=== PATIENT | female | born 1975 | race Caucasian/White ===

== ENCOUNTER 2019-11-22 18:16 | Emergency (ER) | payer MEDICAID, SELFPAY ==
[2019-11-22 18:16] VITALS: BP 160/106; PULSE 98; RESP 16; TEMP 37.2; O2SAT 96; BMI 40.6
--- NOTE | 2019-11-22 18:20 | ED_ITS ---
Entered by Janay Hyman, acting as scribe for Yadira Gilmore HPI - Seizure General: Chief Complaint: Seizure Stated Complaint: seizure Source: patient Mode of arrival: EMS Limitations: no limitations History of Present Illness: HPI Narrative: 44 yo Female presents to ED with complaint of seizures. Pt states that she has been out of her Keppra for 2 days. Pt states that she has had 5 seizures today. Pt states that her head hurts but doesn't know if she hit her head during her seizures today or not. The has arrived and states that she did not hit her head and he observed all seizures. MD complaint: seizure Onset (ago): day(s) (today) Description of Episode: loss of consciousness, tonic-clonic movement and post- event confusion Witnessed: Yes - by Bystander Trauma: No Seizure History: Yes Place: Home Possible Precipitating Event: medication (out of Keppra X 2 days) Associated symptoms: Reports no associated symptoms; Deny chest pain, chills, confusion, diaphoresis, fever(s), malaise or syncope Review of Systems General: Reports: other (negative unless marked) Const: Denies: fever, chills, body aches, fatigue, malaise or diaphoresis Eyes: Denies: change in vision or blurry vision ENMT: Denies: throat pain, painful swallowing, hoarseness, ear pain, ear discharge, Change in hearing or nasal discharge Card: Denies: chest pain, palpitations, irregular heart rhythm, syncope, pre- syncope, shortness of breath on exertion or shortness of breath when lying down Resp: Denies: shortness of breath, productive cough, non-productive cough, wheezing, coughing up blood or chest congestion GI: Denies: abdominal pain, nausea, vomiting, vomiting blood, coffee grounds in vomit, diarrhea, constipation, cramping, blood in stool or black tarry stool : Denies: flank pain, painful urination, urinary frequency, urinary urgency, decreased urine ouput, urinary incontinence or blood in urine Musc: Denies: neck pain, back pain, extremity pain, extremity swelling, joint pain, joint swelling, joint warmth or joint stiffness Skin/Breast: Denies: rash, skin tenderness or yellow skin Neuro: Reports: headache and seizure-like activity; Denies: numbness in extremities, weakness in extremities, changes in sensation, lack of coordination, difficulty walking, dizziness, vertigo or confusion Endo: Denies: excessive thirst, tired all the time, cold intolerance, excessive sweating, flushing or hot flashes Dat/Lymph: Denies: easy bruising, easy bleeding, petechiae or enlarged lymph nodes All/Imm: Denies: hives, throat swelling, tongue swelling, facial swelling or acute wheezing PFSH ED PFSH: Statuses (acute, chronic, etc) shown below reflect problem list status as previously entered and may not be historically accurate Medical History Seizure (Acute) Social History Smoking and tobacco status: never smoked Physical Exam Const: COMMON NORMALS: no apparent distress, oriented x3, no limitations, healthy appearing and well nourished EXAM LIMITATIONS: no altered mental status GENERAL APPEARANCE: cooperative, well kempt and well developed ORIENTATION/CONSCIOUSNESS: Yes awake HENMT: COMMON NORMALS: normocephalic, head/scalp atraumatic, hearing grossly normal bilaterally, external ears normal, EAC's normal, external nose normal and moist oral mucous membranes HEAD & SCALP: normal to inspection, normocephalic and atraumatic FACE & SINUS: normal facial exam and face symmetric NOSE: external nose normal and nares normal EXTERNAL EAR: Yes external ears normal EXTERNAL AUDITORY CANAL: EAC's normal MOUTH: oral and palatal mucosa normal and tongue normal Eye: COMMON NORMALS: PERRL, EOMs intact bilaterally, conjunctivae normal and no scleral icterus GENERAL EYE: normal appearance of both eyes and normal light reflex CONJUNCTIVA: Yes conjunctivae normal SCLERA: sclerae normal CORNEA: Yes corneas normal PUPIL: Yes PERRL DIRECT OPHTHALMOSCOPY: Yes normal light reflex Neck/C-Spine: COMMON NORMALS: full ROM, no lymphadenopathy, supple, no meningeal signs and no JVD GENERAL: Yes normal visual inspection and Yes trachea midline CERVICAL SPINE: Yes cervical ROM normal Chest: COMMONS NORMALS: inspection of chest normal and palpation of chest normal Resp: COMMON NORMALS: normal respiratory effort, no retractions, no use of accessory muscles and clear to auscultation bilaterally EFFORT & INSPECTION: Yes able to speak in complete sentences AUSCULTATION: clear to auscultation bilaterally Cardio: COMMON NORMALS: no JVD, regular rate, regular rhythm, S1 normal heart sound, S2 normal heart sound, no gallops, no clicks, no murmurs and no rub JUGULAR VENOUS DISTENTION: no JVD RATE: regular rate RHYTHM: regular rhythm HEART SOUNDS: S1 normal and S2 normal GI: COMMON NORMALS: soft to palpation, non-tender, no hepatosplenomegaly and no masses INSPECTION: Yes normal to inspection PALPATION: Yes soft and Yes no hepatosplenomegaly : COMMON NORMALS: Yes no CVA tenderness BLADDER/KIDNEY EXAM: Yes no CVA tenderness Back/Pelvis: COMMON NORMALS: no CVA tenderness, thoracic and lumbar spine normal to inspection, no thoracic nor lumbar tenderness and thoraco-lumbar ROM normal Extremity: COMMON NORMALS: normal to inspection, full ROM, normal capillary refill, no joint enlargement, no clubbing, cyanosis or edema and no calf tenderness Neuro: COMMON NORMALS: oriented x3, CN's II-XII intact bilaterally, moves all extremities, no focal motor deficits and no sensory deficits noted MENINGEAL SIGNS: Yes no meningeal signs Psych: COMMON NORMALS: mental status grossly normal, thought process normal, cooperative, affect normal, speech normal and activity/motor behavior normal APPEARANCE: Yes well kempt SPEECH: Yes normal speech THOUGHT PROCESS: normal thought process Skin: COMMON NORMALS: no rashes or lesions noted, skin turgor normal, no jaundice, no petechiae and no mottling GENERAL SKIN EXAM: no rashes or les ions noted and turgor normal Course Vital Signs: Vital signs: Vital Signs Temperature 99 F 11/22/19 18:16 Pulse Rate 98 11/22/19 18:16 Respiratory Rate 16 11/22/19 18:16 Blood Pressure 160/106 11/22/19 18:16 Pulse Oximetry 96 11/22/19 18:16 MDM - Seizure MDM Narrative: Medical decision making narrative: The patient is refusing all work-up. She wants to go home. I will give her an IV load of Keppra and she will resume her Keppra at home. She has no other complaints or concerns. Discharge Plan Discharge Patient Disposition: Home, Self-Care Clinical Impression: Generalized seizure Condition: Stable Prescriptions: New lisinopril 10 mg tablet 10 mg PO DAILY Qty: 30 RF: 0 Keppra 750 mg tablet 750 mg PO BID 14 Days Qty: 28 RF: 0 Discharge Orders: Discharge Order (Routine); Ordered 11/22/19 Ordered By: Yadira Gilmore Referrals: Sara Barrett MD [Physician] - 4-7 days Discharge Diet: Advance as tolerated Discharge Activity: Increase activity as tolerated Patient Instructions: Epilepsy (ED), Recurrent Seizures Adult (ED), Seizures Activity Restrictions/Additional Instructions: No driving, no working at heights, no tub baths, no swimming alone or anything else that would put you at risk should you have another seizure. Please return to the ER immediately for any of the signs or symptoms listed on your discharge instruction sheets, worsening/changing of your symptoms, you are not getting better as quickly as expected, or for ANY other cause or concerns. Coding Level of Care Code ED Grades 1 Thru 6 Home Teacher for Susang Fwkal The documentation recorded by the Yenni vera Carmen, accurately reflects the service I personally performed and the decisions made by , Yadira Gilmore
[2019-11-22] MEDS: LORazepam 2 mg/mL INJ 1 mL 1 MG IVP (18:55)
[2019-11-22 19:43] VITALS: BP 146/95; PULSE 97; RESP 27; O2SAT 96
== END 2019-11-22 19:43 | disposition home or self-care (01) ==
LOC: ER 12-21 06:53
PROVIDERS: Emergency Provider Emergency Medicine; Family Provider Family Medicine; PCP Family Medicine
DX: G40.89 Other seizures (principal)
CPT/HCPCS: 96365; 96374; 99282; J1953; J2060

== ENCOUNTER 2020-01-13 16:55 | Emergency (ER) | payer MEDICAID, SELFPAY ==
[2020-01-13 16:57] VITALS: BP 165/105; PULSE 83; RESP 18; TEMP 37; O2SAT 99; BMI 40.6
--- NOTE | 2020-01-13 17:10 | ED_ITS ---
HPI - Eye Problem General: Chief complaint: Eye Problems Stated complaint: LEFT EYE PAIN Time Seen by Provider: 01/13/20 17:06 History of Present Illness: HPI Narrative: Patient is a 44-year-old female who comes to the ED with a left eye complaint. Patient has redness itching and irritated left eye that started 2 days ago. Her lower eyelid in the left eye is swollen. Yesterday patient said that it looked like she had a pimple on her left lower eyelid and she popped it and white stuff came out. After popping it she said it seemed a little more red and irritated. Associated symptoms: Reports fever(s); Denies headache(s), nausea, neck pain or vomiting Review of Systems Const: Reports: fever; Denies: chills or fatigue Eyes: Reports: blurry vision (left eye-due to lower eye lid swelling and increased watery eye) and eye discomfort (left eye due to lower lid swelling); Denies: change in vision, eye discharge or eye redness ENMT: Denies: throat pain, painful swallowing, nasal discharge or nasal congestion Card: Denies: chest pain, palpitations, edema, swelling of feet/ankles, shortness of breath on exertion or shortness of breath when lying down Resp: Denies: shortness of breath, productive cough or non-productive cough GI: Denies: abdominal pain, nausea, vomiting, diarrhea, constipation or blood in stool : Denies: flank pain, painful urination or blood in urine Musc: Denies: neck pain, back pain or extremity swelling Skin/Breast: Reports: redness (left lower eyelid), skin tenderness (left lower eye lid) and skin swelling (left lower eye lid); Denies: rash or new lesion Neuro: Denies: headache, numbness in extremities or weakness in extremities PFS ED PFSH: Medical History Seizure Family History Mother Hypertension Father Hypertension Diabetes Stroke Cancer Colon Daughter Diabetes Grandmother Cancer Thyroid Cancer Social History Smoking and tobacco status: former smoker Female Reproductive History: Date of last menstrual period: 11/18/19 Physical Exam Narrative: EXAM NARRATIVE: Patient is a 44-year-old female sitting on the exam chair when I entered the room. She had rag compress to her left eye. Patient had left lower eyelid swelling, erythema and warmth. It was localized to the left lower eyelid and had not spread anywhere else. Const: COMMON NORMALS: oriented x3 HENMT: COMMON NORMALS: normocephalic HEAD & SCALP: normocephalic MOUTH: oral and palatal mucosa normal THROAT: posterior oropharynx normal and uvula midline Eye: COMMON NORMALS: PERRL, EOMs intact bilaterally and conjunctivae normal EYELID: eyelid abnormal left lower eyelid erythema, swelling and tenderness CONJUNCTIVA: Yes conjunctivae normal PUPIL: Yes PERRL Neck/C-Spine: COMMON NORMALS: supple GENERAL: Yes normal visual inspection Resp: COMMON NORMALS: normal respiratory effort, no retractions, no use of accessory muscles and clear to auscultation bilaterally AUSCULTATION: clear to auscultation bilaterally Cardio: COMMON NORMALS: regular rate, regular rhythm, S1 normal heart sound, S2 normal heart sound, no gallops, no clicks, no murmurs and peripheral pulses 2+ throughout RATE: regular rate RHYTHM: regular rhythm HEART SOUNDS: S1 normal and S2 normal PERIPHERAL PULSES: pulses 2+ throughout GI: COMMON NORMALS: normal to inspection, nondistended, normoactive bowel sounds, soft to palpation, non-tender and no masses PALPATION: Yes soft : COMMON NORMALS: Yes no CVA tenderness BLADDER/KIDNEY EXAM: Yes no CVA tenderness Back/Pelvis: COMMON NORMALS: no CVA tenderness Extremity: COMMON NORMALS: normal to inspection Neuro: COMMON NORMALS: oriented x3 and moves all extremities Skin: GENERAL SKIN EXAM: dry skin Course Vital Signs: Vital signs: Vital Signs Temperature 98.0 F 01/13/20 18:08 Pulse Rate 72 01/13/20 18:08 Respiratory Rate 16 01/13/20 18:08 Blood Pressure 139/94 01/13/20 18:08 Pulse Oximetry 97 01/13/20 18:08 Discharge Plan Discharge Patient Disposition: Home, Self-Care Clinical Impression: Sty, external Qualifiers: Laterality: left Eyelid: lower Qualified Code(s): H00.015 - Hordeolum externum left lower eyelid Condition: Stable Prescriptions: New erythromycin 5 mg/gram (0.5 %) ointment 1 applic ophthalmic (eye) QID Qty: 3.5 RF: 0 Bactrim DS 800-160 mg tablet 1 tab PO BID 5 Days Qty: 10 RF: 0 No Action levetiracetam [Keppra XR] 750 mg tablet extended release 24 hr 1,500 mg PO QDAY Qty: 60 RF: 1 lisinopril 10 mg tablet 10 mg PO DAILY Qty: 30 RF: 0 Discharge Orders: Discharge Order (Routine); Ordered 01/13/20 Ordered By: Alexandre Plunkett Referrals: Fiona Thomas DO [Primary Care Provider] - Discharge Diet: Regular Discharge Activity: Resume usual activity Patient Instructions: Barrie (ED) Activity Restrictions/Additional Instructions: Follow-up with ear PCP in 5 to 7 days for reevaluation. Take full course of antibiotics as prescribed. Apply the antibiotic ointment 4-6 times a day. Clean left eye with a warm soapy water and rag. Use warm compresses on the left eye. If symptoms worsen after 3 days of treatment with antibiotics return to the ED or go see an eye doctor immediately. Discharge Date/Time: 01/13/20 18:10 Coding Level of Care Code ED Protective Signal Repairer Helper for Terry Fwd Exam Comprehensive
[2020-01-13 18:08] VITALS: BP 139/94; PULSE 72; RESP 16; TEMP 36.7; O2SAT 97
== END 2020-01-13 18:10 | disposition home or self-care (01) ==
PROVIDERS: Emergency Provider Physician Assistant; Family Provider Family Medicine; PCP Family Medicine
DX: H00.015 Hordeolum externum left lower eyelid (principal); Z87.891 Personal history of nicotine dependence
CPT/HCPCS: 12345; 99281

== ENCOUNTER 2020-03-26 21:05 | Emergency (ER) | payer MEDICAID, SELFPAY ==
--- NOTE | 2020-03-26 21:09 | ED_ITS ---
HPI - General Adult General: Chief complaint: Allergic Reaction Stated complaint: poss allergic reaction Time Seen by Provider: 03/26/20 21:09 Source: patient Mode of arrival: ambulatory Limitations: no limitations History of Present Illness: HPI narrative: Patient comes in today for complaints of swelling of her tongue. Patient states that she had just finished the [place] salad with ranch dressing and started feeling her tongue swell. 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 Patient appears well, patient appears in no pain. Respirations are even. And patient appears in no acute distress. Review of Systems General: Reports: 10 or more systems reviewed and unremarkable except in HPI and below ENMT: Reports: other (Tongue swelling) [facility] ED PFSH: Medical History (Updated 03/26/20 @ 21:15 by YO Patel) Anxiety Carpal tunnel syndrome delivery delivered Epilepsy Essential hypertension Restless legs syndrome Seizure Surgical History H/O tubal ligation History of shoulder surgery Family History Mother Hypertension Father Hypertension Diabetes Stroke Cancer Colon Daughter Diabetes Grandmother Cancer Thyroid Cancer Social History Smoking and tobacco status: former smoker Alcohol intake: never Female Reproductive History: Date of last menstrual period: 11/18/19 Physical Exam Const: COMMON NORMALS: no acute distress and patient oriented x3 GENERAL APPEARANCE: cooperative HENMT: COMMON NORMALS: normocephalic, TM's normal bilaterally and Normal external nose present HEAD & SCALP: normal to inspection and normocephalic NOSE: Normal external nose present TYMPANIC MEMBRANE: TM's normal bilaterally MOUTH: Normal oral and palatal mucosa present, lip normal and tongue abnormal (Possible mild anterior swelling.) THROAT: posterior oropharynx normal Eye: GENERAL EYE: appearance normal, both eyes and all related structures Neck/C-Spine: COMMON NORMALS: full ROM Lymph: LYMPHATIC: no lymphadenopathy noted Chest: COMMONS NORMALS: normal inspection of the chest Resp: COMMON NORMALS: normal respiratory effort EFFORT & INSPECTION: Yes able to speak in complete sentences Cardio: COMMON NORMALS: regular rate and regular rhythm RATE: regular rate RHYTHM: regular rhythm GI: COMMON NORMALS: non-tender : COMMON NORMALS: Yes no CVA tenderness BLADDER/KIDNEY EXAM: Yes no CVA tenderness Back/Pelvis: COMMON NORMALS: no CVA tenderness and thoracic and lumbar spine normal to inspection Extremity: COMMON NORMALS: normal to inspection Neuro: COMMON NORMALS: patient oriented x3 and moves all extremities Psych: COMMON NORMALS: mental status grossly normal and cooperative Skin: COMMON NORMALS: no rashes or lesions noted GENERAL SKIN EXAM: no rashes or lesions noted Course ED course: 2204, patient resting well, reports that tongue swelling is better, will monitor for next hour to ensure no recurrence. wjw Vital Signs: Vital signs: Vital Signs Temperature 96.6 F L 03/26/20 21:11 Pulse Rate 96 03/26/20 22:30 Respiratory Rate 16 03/26/20 22:30 Blood Pressure 133/77 03/26/20 22:30 Pulse Oximetry 97 03/26/20 22:30 MDM - General Adult MDM Narrative: Medical decision making narrative: Patient comes in today for complaints of swelling of the tongue. Patient reports that she noticed it after ingesting lena lettuce. Patient feels that the lena lettuce is what caused the incident as it was similar to her coconut allergy response. Exam notes no significant swelling of the tongue. Respirations were even lungs were clear to auscultation. Skin was warm and dry color was pink. Differential diagnosis includes allergic reaction to food, anaphylaxis, angioedema. Patient was given epinephrine 0.3 mg with good results. Patient was then given Solu- Medrol and famotidine and cetirizine for further treatment of the reaction. Patient will be continued on routine medications. Patient should follow-up with primary care. Patient was given a refill of her lisinopril which she routinely takes. Another thought may be angioedema secondary to the use of lisinopril although patient was very adamant that it was similar to her coconut allergy and feels it was lena lettuce. Discharge Plan Discharge Patient Disposition: Home, Self-Care Clinical Impression: Allergic reaction Qualifiers: Encounter type: initial encounter Qualified Code(s): T78.40XA - Allergy, unspecified, initial encounter Condition: Stable Prescriptions: New cetirizine 10 mg tablet 10 mg PO DAILY 10 Days Qty: 10 RF: 0 famotidine 20 mg tablet 20 mg PO BID 10 Days Qty: 20 RF: 0 prednisone 20 mg tablet 20 mg PO DAILY 5 Days Qty: 5 RF: 0 lisinopril 10 mg tablet 10 mg PO DAILY Qty: 30 RF: 1 No Action lisinopril 10 mg tablet 10 mg PO DAILY Qty: 30 RF: 0 levetiracetam [Keppra XR] 750 mg tablet extended release 24 hr 1,500 mg PO QDAY Qty: 60 RF: 2 Referrals: Fiona Thomas DO [Primary Care Provider] - Discharge Diet: Usual diet Discharge Activity: Increase activity as tolerated Patient Instructions: Food Allergy (ED) Activity Restrictions/Additional Instructions: Avoids exposure to lena lettuce and ranch dressing. It is sometimes hard to discover the allergen that causes the reaction. Drink plenty of water and take medications as directed. Follow-up with primary care for further evaluation and treatment. Return to the ER for worsening symptoms or new concerns. Coding Level of Care Code ED Manager Supply Chain Planning for Terry Fwd Exam Comprehensive
[2020-03-26 21:11] VITALS: BP 173/105; PULSE 96; RESP 20; TEMP 35.9; O2SAT 98; BMI 40.6
[2020-03-26] MEDS: cetirizine 10 mg Tablet PO (21:40)
[2020-03-26] MEDS: famotidine 20 mg Tablet 40 MG PO (21:40)
[2020-03-26] MEDS: EPINEPHrine 1 mg/mL INJ 0.3 MG IM (21:41)
[2020-03-26 21:47] VITALS: BP 169/86; PULSE 99; RESP 18; O2SAT 97
[2020-03-26 22:05] VITALS: BP 140/80; PULSE 85; RESP 19; O2SAT 97
[2020-03-26 22:30] VITALS: BP 133/77; PULSE 96; RESP 16; O2SAT 97
--- NOTE | 2020-03-26 22:56 | PC.NURSE ---
care and report given to Eloy bartlett RN
[2020-03-26 23:22] VITALS: BP 132/65; PULSE 81; RESP 23; O2SAT 98
[2020-03-26 23:35] VITALS: BP 154/87; PULSE 79; RESP 20; O2SAT 99
== END 2020-03-26 23:36 | disposition home or self-care (01) ==
PROVIDERS: Emergency Provider Nurse Practitioner Family; PCP Family Medicine
DX: T78.40XA Allergy, unspecified, initial encounter (principal); I10 Essential (primary) hypertension; Z87.891 Personal history of nicotine dependence
CPT/HCPCS: 12345; 96372; 99282; 99284; J0171; J2930

== ENCOUNTER → 2020-03-28 08:47 | Outpatient (BNVA) | payer MEDICAID, SELFPAY | PROVIDERS: PCP Family Medicine; Visit Provider Specialist | DX: R56.9 Unspecified convulsions (principal); Z87.891 Personal history of nicotine dependence | CPT/HCPCS: 99214 ==

== ENCOUNTER 2021-07-26 11:00 | Emergency (ER) | payer MEDICAID, SELFPAY ==
[2021-07-26 11:25] VITALS: BP 141/73; PULSE 72; RESP 20; TEMP 37.2; O2SAT 96; BMI 46.0
--- NOTE | 2021-07-26 12:03 | ECG_ITS ---
[facility] Test Date: 2021-07-26 Pat Name: Fiona Jasso Department: Room: Gender: Female Aluminum Polisher: : 1975 Requested By: Higinio Brice Order Number: [id number] Sarahy MD: Justina Lopez M.D. Measurements Intervals Harmony Rate: 79 P: 20 RI: 127 QRS: 48 QRSD: 88 T: 24 QT: 365 QTc: 420 Interpretive Statements SINUS RHYTHM WITH FREQUENT VENTRICULAR PREMATURE COMPLEXES ABNORMAL RHYTHM ECG Compared to ECG 08/27/2019 00:12:44 Ventricular premature complex(es) now present T-wave abnormality no longer present Electronically Signed On 07-26-2021 18:30:20 CDT by Justina Lopez M.D. [email or web address]
--- NOTE | 2021-07-26 12:03 | XR_ITS ---
WS: [id number] XR chest 1V portable [id number] REASON FOR EXAM: chest pain FINDINGS: The heart and mediastinum are within normal limits. No active pulmonary parenchymal pleural disease. Bony thorax is intact. The chest is unchanged compared to 10/23/2019. XR/XR chest 1V portable [id number] IMPRESSION: No acute chest abnormality.
[2021-07-26 12:05] VITALS: BP 145/76; PULSE 79; RESP 16; O2SAT 97
[2021-07-26 12:18] LABS: Basophils # 0.1 10^3/uL (0.0-0.1); Basophils % 0.6 %; Eosinophils % 0.4 %; Hematocrit 41.3 % (37.0-47.0); Hemoglobin 13.4 g/dL (11.5-15.3); Lymphocytes # 1.7 10^3/uL (0.8-4.8); Lymphocytes % 21.3 %; Mean Corpuscular HGB Conc 32.4 g/dL (30.0-36.0); Mean Corpuscular Hemoglobin 29.8 pg (28.0-34.0); Mean Platelet Volume 10.6 fL (7.4-10.4); Monocytes # 0.7 10^3/uL (0.2-0.9); Neutrophils # 5.37 10^3/uL (1.8-7.7); Neutrophils % 68.4 %; Nucleated Red Blood Cells % 0 %; Platelet Count 250 10^3/cmm (130-400); Red Blood Count 4.49 10^6/uL (4.1-5.3); Red Cell Distribution Width 12.6 % (12.1-15.1); White Blood Count 7.9 10^3/uL (4.0-10.0)
[2021-07-26 12:29] LABS: Alanine Aminotransferase 8 U/L (0-33); Albumin Level 4.2 g/dL (3.5-5.2); Alkaline Phosphatase 74 IU/L (35-105); Anion Gap 14.7 (5-19); Aspartate Amino Transferase 11 U/L (0-32); Blood Urea Nitrogen 14 mg/dL (6-20); Carbon Dioxide 29 mmol/L (22-29); Chloride 102 mmol/L (98-107); Globulin 3.3 g/dL (1.3-4.6); Glomerular Filtration Rate 89.7 mL/min (90-130); Glucose 95 mg/dL (65-115); Osmolality Calculated 294 mOsm/kg (285-295); Potassium 3.7 mmol/L (3.5-5.1); Sodium 142 mmol/L (136-145); Total Bilirubin 0.2 mg/dL (0.15-1.2); Total Protein 7.5 g/dL (6.6-8.7)
[2021-07-26 12:32] LABS: Troponin(5th) Baseline 6 ng/L (0-10)
[2021-07-26 12:55] LABS: Troponin 5 2HR Delta 0 ABS# (0-10)
--- NOTE | 2021-07-26 13:36 | ED_ITS ---
HPI - Chest Pain General: Chief Complaint: Chest Pain Stated Complaint: CHEST PAIN Time Seen by Provider: 07/26/21 12:03 History of Present Illness: HPI narrative: Patient is a 46-year-old female with a past medical of high blood pressure. She is here with complaint of chest pain. Stated started about 1000 this morning. She was at rest while working. Stated she had 8 out of 10 pressure in her upper left chest. It did radiate down her arm but not up into her neck or back. She did not have any nausea or diaphoresis with this. She states that in 2016 she had another heart attack but states that she was sent home on meds on a Holter monitor for this. 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 and does not have a confirmed coronary artery disease denies recent fevers chills shortness of breath nausea vomiting diarrhea abdominal pain altered mental status syncope or headache Review of Systems General: Reports: 10 or more systems reviewed and unremarkable except in HPI and below PFSH ED PFSH: Medical History Anxiety Carpal tunnel syndrome delivery delivered Epilepsy Essential hypertension Restless legs syndrome Seizure Seizure Surgical History H/O tubal ligation History of shoulder surgery Family History Mother Hypertension Father Hypertension Diabetes Stroke Cancer Colon Daughter Diabetes Grandmother Cancer Thyroid Cancer Social History Smoking and tobacco status: current some day smoker cigarettes and e-cigarettes E-Cigarette Details: vaporizer device Alcohol intake: never Female Reproductive History: Date of last menstrual period: 11/06/21 Physical Exam Const: COMMON NORMALS: no acute distress, average body habitus and patient oriented x3 GENERAL APPEARANCE: cooperative and comfortable; not in distress, not anxious, not ill appearing and not diaphoretic ORIENTATI ON/CONSCIOUSNESS: Yes awake, Yes oriented to person and Yes oriented to place HENMT: COMMON NORMALS: normocephalic and atraumatic HEAD & SCALP: normocephalic and atraumatic Eye: COMMON NORMALS: Equal, round and reactive pupils present and EOMs intact bilaterally PUPIL: Yes Equal, round and reactive pupils present Neck/C-Spine: COMMON NORMALS: no JVD Chest: COMMONS NORMALS: normal inspection of the chest and normal palpation of entire chest wall CHEST: No localized rib tenderness with anteroposterior compression Resp: COMMON NORMALS: normal respiratory effort, No retractions, No use of accessory muscles and clear to auscultation bilaterally AUSCULTATION: clear to auscultation bilaterally Cardio: COMMON NORMALS: no JVD, regular rate, regular rhythm, S1 normal heart sound present, S2 normal heart sound present, No murmurs present (Cardio) and Peripheral pulses 2+ throughout RATE: regular rate RHYTHM: regular rhythm HEART SOUNDS: S1 normal heart sound present and S2 normal heart sound present PERIPHERAL PULSES: Peripheral pulses 2+ throughout GI: COMMON NORMALS: Normal to inspection, nondistended, normoactive bowel sounds present, Soft to palpation and non-tender PALPATION: Yes Soft to palpation Extremity: COMMON NORMALS: normal to inspection and full ROM Neuro: COMMON NORMALS: patient oriented x3, CN's II-XII intact bilaterally, moves all extremities, no focal motor deficits and no sensory deficits noted SENSORIUM/ORIENTATION: Yes oriented to person and Yes oriented to place Psych: COMMON NORMALS: mental status grossly normal and Normal thought process present THOUGHT PROCESS: Normal thought process present Skin: COMMON NORMALS: no rashes or lesions noted, no wounds, turgor normal, no jaundice, no petechiae and no mottling GENERAL SKIN EXAM: no rashes or lesions noted and turgor normal Course ED course: Patient's initial troponin was less than detectable. She did remain in some mild pain refused aspirin and morphine due to previous allergic reactions. Remained comfortable and conversant in bed. Second troponin was negative as well. EKG did not show any ischemic changes. She does have good follow-up with her primary care provider week discussed need to follow-up in 3 to 5 days and she was found to be appropriate for discharge. She is a heart score of 3 making her low risk Well score of 0. Did go ahead and get a D-dimer and that was right at the top end of normal. Did discuss with the patient that clinically I have a very very low. Clinical suspicion of a pulmonary malaise him on her I did offer the patient to do a CT angiogram to double check and the patient did not not want to do that. I did give her specific instructions on symptoms to look look for to return for possible pulmonary embolism. At this point I think it is reasonable not to do the CT PE given the very low clinical yield of a D-dimer test and it well-known property of being a false positive Patient is well-appearing requiring any oxygen or further resuscitation feel she is appropriate for discharge at this time Vital Signs: Vital signs: Vital Signs Temperature 99.0 F 07/26/21 11:25 Pulse Rate 79 07/26/21 12:05 Respiratory Rate 16 07/26/21 12:05 Blood Pressure 145/76 07/26/21 12:05 Pulse Oximetry 97 07/26/21 12:05 MDM - Chest Pain MDM Narrative: Medical decision making narrative: Patient is a 46-year-old female here with chest pain differential includes pulmonary embolism ACS costochondritis angina musculoskeletal chest pain We will get standard chest pain work-up including EKG troponin chest x-ray cardiac labs CBC CMP. She has a well score of 0 initially fairly nonspecific for cardiac etiology Differential Diagnosis: Cardiac arrest differential diagnosis: Likely acute respiratory failure and acute myocardial infarction Medical Records: Attestation: I reviewed the patient's medical records. Lab Data: Attestation: I reviewed the patient's lab results. Labs: Lab Results 07/26/21 07/26/21 07/26/21 Range/Units 10:25 10:25 10:25 WBC 7.9 (4.0-10.0) 10^3/ uL RBC 4.49 (4.1-5.3) 10^6/u L Hgb 13.4 (11.5-15.3) g/dL Hct 41.3 (37.0-47.0) % MCV 92.0 (81-99) fl MCH 29.8 (28.0-34.0) pg MCHC 32.4 (30.0-36.0) g/dL RDW 12.6 (12.1-15.1) % Plt Count 250 (130-400) 10^3/c mm MPV 10.6 H (7.4-10.4) fL Neut % (Auto) 68.4 % Lymph % (Auto) 21.3 % [place] % (Auto) 9.0 % Eos % (Auto) 0.4 % Baso % (Auto) 0.6 % Neut # (Auto) 5.37 (1.8-7.7) 10^3/u L Lymph # (Auto) 1.7 (0.8-4.8) 10^3/u L [place] # (Auto) 0.7 (0.2-0.9) 10^3/u L Eos # (Auto) 0.0 (0.0-0.8) 10^3/u L Baso # (Auto) 0.1 (0.0-0.1) 10^3/u L Nucleated RBC % (a uto) 0 % Nucleated RBCs # 0.0 /100WBC D-Dimer 0.60 H (0-0.59) ug/mIFE U Sodium 142 (136-145) mmol/L Potassium 3.7 (3.5-5.1) mmol/L Chloride 102 (98-107) mmol/L Carbon Dioxide 29 (22-29) mmol/L Anion Gap 14.7 (5-19) BUN 14 (6-20) mg/dL Creatinine 0.7 (0.5-0.9) mg/dL GFR Calculation 89.7 L (90-130) mL/min Glucose 95 (65-115) mg/dL Calculated Osmolal ity 294 (285-295) mOsm/k g Calcium 9.0 (8.5-10.5) mg/dL Total Bilirubin 0.2 (0.15-1.2) mg/dL AST 11 (0-32) U/L ALT 8 (0-33) U/L Alkaline Phosphata se 74 (35-105) IU/L Troponin T Baselin e (0-10) ng/L Troponin T 120 Min [place] (0-10) ng/L Delta Troponin T (0-10) ABS# Total Protein 7.5 (6.6-8.7) g/dL Albumin 4.2 (3.5-5.2) g/dL Globulin 3.3 (1.3-4.6) g/dL 07/26/21 07/26/21 Range/Units 10:25 12:25 WBC (4.0-10.0) 10^3/ uL RBC (4.1-5.3) 10^6/u L Hgb (11.5-15.3) g/dL Hct (37.0-47.0) % MCV (81-99) fl MCH (28.0-34.0) pg MCHC (30.0-36.0) g/dL RDW (12.1-15.1) % Plt Count (130-400) 10^3/c mm MPV (7.4-10.4) fL Neut % (Auto) % Lymph % (Auto) % [place] % (Auto) % Eos % (Auto) % Baso % (Auto) % Neut # (Auto) (1.8-7.7) 10^3/u L Lymph # (Auto) (0.8-4.8) 10^3/u L [place] # (Auto) (0.2-0.9) 10^3/u L Eos # (Auto) (0.0-0.8) 10^3/u L Baso # (Auto) (0.0-0.1) 10^3/u L Nucleated RBC % (a uto) % Nucleated RBCs # /100WBC D-Dimer (0-0.59) ug/mIFE U Sodium (136-145) mmol/L Potassium (3.5-5.1) mmol/L Chloride (98-107) mmol/L Carbon Dioxide (22-29) mmol/L Anion Gap (5-19) BUN (6-20) mg/dL Creatinine (0.5-0.9) mg/dL GFR Calculation (90-130) mL/min Glucose (65-115) mg/dL Calculated Osmolal ity (285-295) mOsm/k g Calcium (8.5-10.5) mg/dL Total Bilirubin (0.15-1.2) mg/dL AST (0-32) U/L ALT (0-33) U/L Alkaline Phosphata se (35-105) IU/L Troponin T Baselin e 6 (0-10) ng/L Troponin T 120 Min [place] 6.00 (0-10) ng/L Delta Troponin T 0 (0-10) ABS# Total Protein (6.6-8.7) g/dL Albumin (3.5-5.2) g/dL Globulin (1.3-4.6) g/dL EKG Data^: EKG 1: Attestation: I personally reviewed and interpreted this EKG as follows: EKG interpretation date: 07/26/21 EKG interpretation time: 13:48 Other EKG comments: Normal sinus rhythm with occasional PVCs. Rate 79 [place] normal intervals normal no evidence of ischemia or infarct Discharge Plan Discharge Patient Disposition: Home Clinical Impression: Chest pain Qualifiers: Chest pain type: unspecified Qualified Code(s): R07.9 - Chest pain, unspecified Condition: Stable Prescriptions: No Action divalproex 500 mg tablet extended release 24 hr 500 mg PO BID RF: 0 hydroxyzine HCl 10 mg tablet 10 mg PO TID PRN (Reason: Anxiety) RF: 0 gabapentin 300 mg capsule 300 mg PO TID RF: 0 lisinopril 10 mg tablet 10 mg PO DAILY Qty: 30 RF: 0 Vitamin B-12 25 mcg Tablet 50 mcg PO DAILY RF: 0 tizanidine 2 mg capsule 6 mg PO BEDTIME RF: 0 Discharge Orders: Discharge ED (Routine); Ordered 07/26/21 Ordered By: Higinio Meredith Referrals: Riley Curtis [Primary Care Provider] - Patient Instructions: Chest Pain (ED) Activity Restrictions/Additional Instructions: Follow-up with your primary care provider in 3 to 5 days. Return with any new or worsening symptoms. Coding Level of Care Code ED Development Administrator for Chg Fwd Exam Comprehensive
[2021-07-26 13:50] VITALS: BP 160/98; PULSE 82; O2SAT 98
== END 2021-07-26 13:51 | disposition home or self-care (01) ==
PROVIDERS: Emergency Provider Family Medicine; PCP Family Medicine
DX: R07.9 Chest pain, unspecified (principal); I10 Essential (primary) hypertension; F17.290 Nicotine dependence, other tobacco product, uncomplicated
CPT/HCPCS: 71045; 80053; 84484; 85025; 85378; 93005; 99283

== ENCOUNTER 2021-07-30 09:59 | Emergency (ER) | payer MEDICAID, SELFPAY ==
[2021-07-30 10:13] VITALS: BP 166/76; PULSE 74; RESP 18; TEMP 36.6; O2SAT 96; BMI 46.5
--- NOTE | 2021-07-30 10:20 | XRR_ITS ---
PROCEDURE INFORMATION: Exam: XR Chest Exam date and time: 07/30/2021 10:20 AM Age: 46 years old Clinical indication: Radiating; Patient HX: History--cp, lt side pain. PT was in er fri night with same symptoms. Pt's symptoms are not getting any better but shows signs of worsening. Cp (radiates down lt arm), disoriented, slurring of speech, pt's stated she had episodes where she quit breathing in her sleep last night. TECHNIQUE: Imaging protocol: XR of the chest. Views: 1 view. Total images: 1 COMPARISON: CR XR chest 1V portable [id number] 07/26/2021 12:12 PM FINDINGS: Lungs: Unremarkable. No consolidation. Pleural spaces: Unremarkable. No pleural effusion. No pneumothorax. Heart/Mediastinum: Unremarkable. No cardiomegaly. Bones/joints: Unremarkable. XR/XR chest 1V portable [id number] IMPRESSION: No acute findings.
--- NOTE | 2021-07-30 10:34 | W.ED.CHESTPA ---
Documented by User: LEAH Lerma 07/31/21 09:35 HPI - Chest Pain General: Chief Complaint: Chest Pain Stated Complaint: CP, L SIDE PAIN, SEEN THURSDAY FOR SAME Time Seen by Provider: 07/30/21 10:02 History of Present Illness: HPI narrative: Patient is a 46-year-old female comes to the ED with chest pain. Patient was seen here in the ED for same complaint back on July 26. She was then seen by her PCP for follow-up on July 29. She states that since she was seen here in the ED on she has continued to have chest pain. She says it has not improved. She rates the pain an 8 out of 10. She describes it as a pain on the left side of the chest that radiates into her left arm and shoulder region. Endorses shortness of breath and says it feels like there is an elephant sitting on her chest. Chest pain started at rest and it does not get worse with exertion. Associated symptoms: Reports dyspnea; Deny abdominal pain, fever(s), nausea, palpitations or vomiting Review of Systems Const: Denies: fever(s), chills or fatigue Eyes: Denies: change in vision or eye discomfort ENMT: Denies: throat pain, odynophagia, nasal discharge or nasal congestion Card: Reports: chest pain; Denies: palpitations, edema, swelling of feet/ankles, dyspnea on exertion or orthopnea Resp: Reports: dyspnea; Denies: productive cough or non-productive cough GI: Denies: abdominal pain, nausea, vomiting, diarrhea, constipation or hematochezia : Denies: flank pain, dysuria or hematuria Musc: Denies: neck pain, back pain or extremity swelling Skin/Breast: Denies: rash or new lesions Neuro: Denies: headache(s), numbness in extremities or weakness in extremities PFS ED PFSH: Medical History Anxiety Carpal tunnel syndrome delivery delivered Epilepsy Essential hypertension Restless legs syndrome Seizure Seizure Surgical History H/O tubal ligation History of shoulder surgery Family History Mother Hypertension Father Hypertension Diabetes Stroke Cancer Colon Daughter Diabetes Grandmother Cancer Thyroid Cancer Social History Alcohol intake: never Female Reproductive History: Date of last menstrual period: 06/25/21 Physical Exam Const: COMMON NORMALS: no acute distress, patient oriented x3 and alert GENERAL APPEARANCE: cooperative and comfortable NUTRITIONAL APPEARANCE: obese HENMT: COMMON NORMALS: normocephalic HEAD & SCALP: normocephalic MOUTH: Normal oral and palatal mucosa present THROAT: posterior oropharynx normal and uvula midline Eye: COMMON NORMALS: Equal, round and reactive pupils present PUPIL: Yes Equal, round and reactive pupils present Neck/C-Spine: COMMON NORMALS: supple GENERAL: Yes normal visual inspection Resp: COMMON NORMALS: normal respiratory effort, No retractions, No use of accessory muscles and clear to auscultation bilaterally AUSCULTATION: clear to auscultation bilaterally Cardio: COMMON NORMALS: regular rate, regular rhythm, S1 normal heart sound present, S2 normal heart sound present, No gallops present (Cardio), No clicks present (Cardio), No murmurs present (Cardio) and Peripheral pulses 2+ throughout RATE: regular rate RHYTHM: regular rhythm HEART SOUNDS: S1 normal heart sound present and S2 normal heart sound present PERIPHERAL PULSES: Peripheral pulses 2+ throughout GI: COMMON NORMALS: Normal to inspection, nondistended, normoactive bowel sounds present, Soft to palpation, non-tender and no masses INSPECTION: Yes central obesity PALPATION: Yes Soft to palpation : COMMON NORMALS: Yes no CVA tenderness BLADDER/KIDNEY EXAM: Yes no CVA tenderness Back/Pelvis: COMMON NORMALS: no CVA tenderness Extremity: COMMON NORMALS: normal to inspection Neuro: COMMON NORMALS: patient oriented x3 and moves all extremities SENSORIUM/ORIENTATION: Yes alert Skin: GENERAL SKIN EXAM: dry skin Course Reevaluation(s): Reevaluation #1: Patient was given a GI cocktail and her chest pain symptoms improved greatly. Vital Signs: Vital signs: Vital Signs Temperature 97.9 F 07/30/21 10:13 Pulse Rate 68 07/30/21 14:22 Respiratory Rate 16 07/30/21 14:22 Blood Pressure 134/72 07/30/21 14:22 Pulse Oximetry 98 07/30/21 14:22 MDM - Chest Pain MDM Narrative: Medical decision making narrative: Patient is a 46-year-old female comes to the ED with chest pain. Patient was seen here in the ED on July 26 for same complaint. Full work-up was done at that time and patient was diagnosed with unspecified chest pain. Patient says she is continue to have chest pain whether she is at rest and it does not worsen on exertion. Patient is nontoxic appearing and in no acute distress or pain. The rest of exam is benign. Vitals are stable. CBC, CMP were unremarkable. EKG showed normal sinus rhythm with no ST segment elevation or depression seen. Troponins negative. D-dimer is elevated at 0.74. CT a of the chest was performed and it showed some of the segmental branches the opacification is very limited and no PEs. I talked with Dr. See about the CTA of the chest findings and he agreed that patient does not need to be sent home on a blood thinner. Patient was given a GI cocktail while here in the ED and her chest pain symptoms improved greatly. Patient was diagnosed with noncardiac chest pain and discharged home with a prescription for Protonix. She was told to follow-up with her PCP in 7 to 10 days reevaluation. Return to ED precautions given. Patient understood and agree with plan. Lab Data: Attestation: I reviewed the patient's lab results. Labs: Lab Results 07/30/21 07/30/21 07/30/21 10:55 10:55 10:55 WBC 5.7 10^3/uL 10^3/ uL (4.0-10.0) RBC 3.88 10^6/uL L 10 ^6/uL (4.1-5.3) Hgb 11.7 g/dL g/dL (11.5-15.3) Hct 35.9 % L % (37.0-47.0) MCV 92.5 fl fl (81-99) MCH 30.2 pg pg (28.0-34.0) MCHC 32.6 g/dL g/dL (30.0-36.0) RDW 12.8 % % (12.1-15.1) Plt Count 184 10^3/cmm 10^3 /cmm (130-400) MPV 10.5 fL H fL (7.4-10.4) Neut % (Auto) 66.2 % % Lymph % (Auto) 23.1 % % [place] % (Auto) 9.1 % % Eos % (Auto) 0.7 % % Baso % (Auto) 0.7 % % Neut # (Auto) 3.78 10^3/uL 10^3 /uL (1.8-7.7) Lymph # (Auto) 1.3 10^3/uL 10^3/ uL (0.8-4.8) [place] # (Auto) 0.5 10^3/uL 10^3/ uL (0.2-0.9) Eos # (Auto) 0.0 10^3/uL 10^3/ uL (0.0-0.8) Baso # (Auto) 0.0 10^3/uL 10^3/ uL (0.0-0.1) Nucleated RBC % (a uto) 0 % % Nucleated RBCs # 0.0 /100WBC /100W BC D-Dimer 0.74 ug/mIFEU H u g/mIFEU (0-0.59) Sodium 142 mmol/L mmol/L (136-145) Potassium 3.9 mmol/L mmol/L (3.5-5.1) Chloride 105 mmol/L mmol/L (98-107) Carbon Dioxide 28 mmol/L mmol/L (22-29) Anion Gap 12.9 (5-19) BUN 8 mg/dL mg/dL (6-20) Creatinine 0.6 mg/dL mg/dL (0.5-0.9) GFR Calculation 107.2 mL/min mL/m in (90-130) Glucose 85 mg/dL mg/dL (65-115) Calculated Osmolal ity 292 mOsm/kg mOsm/ kg (285-295) Calcium 9.1 mg/dL mg/dL (8.5-10.5) Total Bilirubin 0.2 mg/dL mg/dL (0.15-1.2) AST 11 U/L U/L (0-32) ALT 8 U/L U/L (0-33) Alkaline Phosphata se 66 IU/L IU/L (35-105) Troponin T Baselin e Troponin T 120 Min liu Delta Troponin T Total Protein 7.1 g/dL g/dL (6.6-8.7) Albumin 3.8 g/dL g/dL (3.5-5.2) Globulin 3.3 g/dL g/dL (1.3-4.6) 07/30/21 07/30/21 10:55 13:20 WBC RBC Hgb Hct MCV MCH MCHC RDW Plt Count MPV Neut % (Auto) Lymph % (Auto) [place] % (Auto) Eos % (Auto) Baso % (Auto) Neut # (Auto) Lymph # (Auto) [place] # (Auto) Eos # (Auto) Baso # (Auto) Nucleated RBC % (a uto) Nucleated RBCs # D-Dimer Sodium Potassium Chloride Carbon Dioxide Anion Gap BUN Creatinine GFR Calculation Glucose Calculated Osmolal ity Calcium Total Bilirubin AST ALT Alkaline Phosphata se Troponin T Baselin e 6 ng/L ng/L (0-10) Troponin T 120 Min liu 6.00 ng/L ng/L (0-10) Delta Troponin T 0 ABS# ABS# (0-10) Total Protein Albumin Globulin Imaging Data^: CXR: Attestation: I personally reviewed and interpreted this imaging study as follows: Radiologist's impression: [address] [address] XRay Report Signed Patient: Fiona Jasso Unit #: [id number] : 1975 Age/Sex: 46 / F ADM Date: 07/30/21 Loc: ER Room/Bed: Attending Dr: Ordering Provider/Ordering MD: Alexandre Plunkett Date of Service: 07/30/21 Procedure(s): XR chest 1V portable [id number] Accession Number(s): [id number] Report Number: [id number] PROCEDURE INFORMATION: Exam: XR Chest Exam date and time: 07/30/2021 10:20 AM Age: 46 years old Clinical indication: Radiating; Patient HX: History--cp, lt side pain. PT was in er fri night with same symptoms. Pt's symptoms are not getting any better but shows signs of worsening. Cp (radiates down lt arm), disoriented, slurring of speech, pt's stated she had episodes where she quit breathing in her sleep last night. TECHNIQUE: Imaging protocol: XR of the chest. Views: 1 view. Total images: 1 COMPARISON: CR XR chest 1V portable [id number] 07/26/2021 12:12 PM FINDINGS: Lungs: Unremarkable. No consolidation. Pleural spaces: Unremarkable. No pleural effusion. No pneumothorax. Heart/Mediastinum: Unremarkable. No cardiomegaly. Bones/joints: Unremarkable. XR/XR chest 1V portable [id number] IMPRESSION: No acute findings. Dictated By: Riley Hobson MD Signed By: Riley Hobson MD Signed Date/Time: 07/30/21 1148 DD/ 1146 CTA Chest: Attestation: I personally reviewed and interpreted this imaging study as follows: Radiologist's impression: [facility] [address] [place] [address] CT Scan Report Signed Patient: Fiona Jasso Unit #: [id number] : 1975 Age/Sex: 46 / F ADM Date: 07/30/21 Loc: ER Room/Bed: Attending Dr: Ordering Provider/Ordering MD: Alexandre Plunkett Date of Service: 07/30/21 Procedure(s): CT angio chest PE protcl [id number] Accession Number(s): [id number] Report Number: [id number] WS: [id number] CT CHEST ANGIOGRAPHY WITH REFORMATS HISTORY: CP, SOB, Elevated D-Dimer TECHNIQUE: Contiguous axial images are obtained through the chest during arterial injection of intravenous contrast. Images are reconstructed to evaluate the pulmonary arteries. MIP imaging also reviewed. All CT scans at [facility] use at least one of these dose optimization techniques: automated exposure control; mA and/or kV adjustment per patient size (includes targeted exams where dose is matched to clinical indication); or iterative reconstruction. CONTRAST: Omnipaque 350; 95 mL IV. DLP: 528.86 mGy.cm COMPARISON: 07/10/2019 Limited opacification of the pulmonary arteries. There is significant artifact through the pulmonary arteries by body habitus. No filling defects are identified centrally. Beyond the lobar and some of the segmental branches the opacification is very limited. Pulmonary artery size is normal. There is no RIGHT heart strain. Very slight enlargement of the LEFT ventricle. Normal thoracic aorta. No mediastinal or hilar adenopathy. Benign granuloma at the LEFT apex. No pneumonia. No pleural effusion. Hepatic steatosis and hepatomegaly. No adrenal mass. CT/CT angio chest PE protcl [id number] IMPRESSION: 1. Suboptimal opacification of the pulmonary arteries distal to the segmental branches. Centrally there is no pulmonary embolism. 2. No pneumonia. 3. Normal aorta. 4. Hepatic steatosis. Dictated By: Liliana Chau DO Signed By: Liliana Chau DO Signed Date/Time: 07/30/211314 DD/ 11 EKG Data^: EKG 1: Attestation: I personally reviewed and interpreted this EKG as follows: EKG interpretation date: 07/30/21 Interpretation: Sinus rhythm, 61 bpm, no ST segment elevation or depression seen. Discharge Plan Discharge Patient Disposition: Home Clinical Impression: Non-cardiac chest pain Condition: Stable Prescriptions: New pantoprazole 40 mg tablet,delayed release (DR/EC) 40 mg PO DAILY 30 Days Qty: 30 RF: 0 No Action divalproex 500 mg tablet extended release 24 hr 500 mg PO BID RF: 0 hydroxyzine HCl 10 mg tablet 10 mg PO TID PRN (Reason: Anxiety) RF: 0 gabapentin 300 mg capsule 300 mg PO TID RF: 0 lisinopril 10 mg tablet 10 mg PO DAILY Qty: 30 RF: 0 Vitamin B-12 25 mcg Tablet 50 mcg PO DAILY RF: 0 tizanidine 2 mg capsule 6 mg PO BEDTIME RF: 0 EpiPen 0.3 mg/0.3 mL Auto-Injector 0.3 mg IM Q10M PRN (Reason: Allergic Reaction) RF: 0 Discharge Orders: Discharge ED (Routine); Ordered 07/30/21 Ordered By: Alexandre Plunkett Referrals: Kathy Stevens FNP [Primary Care Provider] - Discharge Diet: Regular Discharge Activity: Increase activity as tolerated Patient Instructions: Gastroesophageal Reflux Disease (ED), Noncardiac Chest Pain (ED) Activity Restrictions/Additional Instructions: Follow-up with medical provider as directed in 7 to 10 days reevaluation. Take medications as prescribed. Return to the ER or your medical provider if condition worsens. Please read and understand discharge instructions. Thank you for choosing [facility] for your healthcare needs today. Please realize this is an emergency room and that we are providing you with a medical screening exam and this may not be complete and all inclusive of all the testing and or work up that you may need to determine your ailment or severity of your illness. It is very important that you follow up as instructed or that you return to the Emergency Department should you have concerns or if your condition changes or worsens in any way. Coding Level of Care Code ED Demolition Expert for Chg Fwd Exam Comprehensive Documented by User: Donny See MD 08/02/21 12:10 HPI - Chest Pain General: Chief Complaint: Chest Pain Stated Complaint: CP, L SIDE PAIN, SEEN THURSDAY FOR SAME Time Seen by Provider: 07/30/21 10:02 [facility] ED PFSH: Medical History Anxiety Carpal tunnel syndrome delivery delivered Epilepsy Essential hypertension Restless legs syndrome Seizure Seizure Surgical History H/O tubal ligation History of shoulder surgery Family History Mother Hypertension Father Hypertension Diabetes Stroke Cancer Colon Daughter Diabetes Grandmother Cancer Thyroid Cancer Social History Alcohol intake: never Course Vital Signs: Vital signs: Vital Signs Temperature 97.9 F 07/30/21 10:13 Pulse Rate 68 07/30/21 14:22 Respiratory Rate 16 07/30/21 14:22 Blood Pressure 134/72 07/30/21 14:22 Pulse Oximetry 98 07/30/21 14:22 MDM - Chest Pain MDM Narrative: Medical decision making narrative: I discussed CTA findings with LEAH Lerma. Almost certainly artifact in nature/timing issue as is commonly seen. Donny See MD Emergency Medicine Lab Data: Labs: Lab Results 07/30/21 07/30/21 07/30/21 10:55 10:55 10:55 WBC 5.7 10^3/uL 10^3/ uL (4.0-10.0) RBC 3.88 10^6/uL L 10 ^6/uL (4.1-5.3) Hgb 11.7 g/dL g/dL (11.5-15.3) Hct 35.9 % L % (37.0-47.0) MCV 92.5 fl fl (81-99) MCH 30.2 pg pg (28.0-34.0) MCHC 32.6 g/dL g/dL (30.0-36.0) RDW 12.8 % % (12.1-15.1) Plt Count 184 10^3/cmm 10^3 /cmm (130-400) MPV 10.5 fL H fL (7.4-10.4) Neut % (Auto) 66.2 % % Lymph % (Auto) 23.1 % % [place] % (Auto) 9.1 % % Eos % (Auto) 0.7 % % Baso % (Auto) 0.7 % % Neut # (Auto) 3.78 10^3/uL 10^3 /uL (1.8-7.7) Lymph # (Auto) 1.3 10^3/uL 10^3/ uL (0.8-4.8) [place] # (Auto) 0.5 10^3/uL 10^3/ uL (0.2-0.9) Eos # (Auto) 0.0 10^3/uL 10^3/ uL (0.0-0.8) Baso # (Auto) 0.0 10^3/uL 10^3/ uL (0.0-0.1) Nucleated RBC % (a uto) 0 % % Nucleated RBCs # 0.0 /100WBC /100W BC D-Dimer 0.74 ug/mIFEU H u g/mIFEU (0-0.59) Sodium 142 mmol/L mmol/L (136-145) Potassium 3.9 mmol/L mmol/L (3.5-5.1) Chloride 105 mmol/L mmol/L (98-107) Carbon Dioxide 28 mmol/L mmol/L (22-29) Anion Gap 12.9 (5-19) BUN 8 mg/dL mg/dL (6-20) Creatinine 0.6 mg/dL mg/dL (0.5-0.9) GFR Calculation 107.2 mL/min mL/m in (90-130) Glucose 85 mg/dL mg/dL (65-115) Calculated Osmolal ity 292 mOsm/kg mOsm/ kg (285-295) Calcium 9.1 mg/dL mg/dL (8.5-10.5) Total Bilirubin 0.2 mg/dL mg/dL (0.15-1.2) AST 11 U/L U/L (0-32) ALT 8 U/L U/L (0-33) Alkaline Phosphata se 66 IU/L IU/L (35-105) Troponin T Baselin e Troponin T 120 Min liu Delta Troponin T Total Protein 7.1 g/dL g/dL (6.6-8.7) Albumin 3.8 g/dL g/dL (3.5-5.2) Globulin 3.3 g/dL g/dL (1.3-4.6) 07/30/21 07/30/21 10:55 13:20 WBC RBC Hgb Hct MCV MCH MCHC RDW Plt Count MPV Neut % (Auto) Lymph % (Auto) [place] % (Auto) Eos % (Auto) Baso % (Auto) Neut # (Auto) Lymph # (Auto) [place] # (Auto) Eos # (Auto) Baso # (Auto) Nucleated RBC % (a uto) Nucleated RBCs # D-Dimer Sodium Potassium Chloride Carbon Dioxide Anion Gap BUN Creatinine GFR Calculation Glucose Calculated Osmolal ity Calcium Total Bilirubin AST ALT Alkaline Phosphata se Troponin T Baselin e 6 ng/L ng/L (0-10) Troponin T 120 Min liu 6.00 ng/L ng/L (0-10) Delta Troponin T 0 ABS# ABS# (0-10) Total Protein Albumin Globulin Discharge Plan Discharge Patient Disposition: Home Clinical Impression: Non-cardiac chest pain Condition: Stable Prescriptions: New pantoprazole 40 mg tablet,delayed release (DR/EC) 40 mg PO DAILY 30 Days Qty: 30 RF: 0 No Action divalproex 500 mg tablet extended release 24 hr 500 mg PO BID RF: 0 hydroxyzine HCl 10 mg tablet 10 mg PO TID PRN (Reason: Anxiety) RF: 0 gabapentin 300 mg capsule 300 mg PO TID RF: 0 lisinopril 10 mg tablet 10 mg PO DAILY Qty: 30 RF: 0 Vitamin B-12 25 mcg Tablet 50 mcg PO DAILY RF: 0 tizanidine 2 mg capsule 6 mg PO BEDTIME RF: 0 EpiPen 0.3 mg/0.3 mL Auto-Injector 0.3 mg IM Q10M PRN (Reason: Allergic Reaction) RF: 0 Discharge Orders: Discharge ED (Routine); Ordered 07/30/21 Ordered By: Alexandre Plunkett Referrals: Kathy Stevens FNP [Primary Care Provider] - Discharge Diet: Regular Discharge Activity: Increase activity as tolerated Patient Instructions: Gastroesophageal Reflux Disease (ED), Noncardiac Chest Pain (ED) Activity Restrictions/Additional Instructions: Follow-up with medical provider as directed in 7 to 10 days reevaluation. Take medications as prescribed. Return to the ER or your medical provider if condition worsens. Please read and understand discharge instructions. Thank you for choosing [facility] for your healthcare needs today. Please realize this is an emergency room and that we are providing you with a medical screening exam and this may not be complete and all inclusive of all the testing and or work up that you may need to determine your ailment or severity of your illness. It is very important that you follow up as instructed or that you return to the Emergency Department should you have concerns or if your condition changes or worsens in any way. Coding Level of Care Code ED Demolition Expert for Terry Fwkal Exam Comprehensive
[2021-07-30 11:11] LABS: Basophils % 0.7 %; Eosinophils % 0.7 %; Hematocrit 35.9 % (37.0-47.0); Hemoglobin 11.7 g/dL (11.5-15.3); Lymphocytes # 1.3 10^3/uL (0.8-4.8); Lymphocytes % 23.1 %; Mean Corpuscular HGB Conc 32.6 g/dL (30.0-36.0); Mean Corpuscular Hemoglobin 30.2 pg (28.0-34.0); Mean Corpuscular Volume 92.5 fl (81-99); Mean Platelet Volume 10.5 fL (7.4-10.4); Monocytes # 0.5 10^3/uL (0.2-0.9); Monocytes % 9.1 %; Neutrophils # 3.78 10^3/uL (1.8-7.7); Neutrophils % 66.2 %; Nucleated Red Blood Cells % 0 %; Platelet Count 184 10^3/cmm (130-400); Red Blood Count 3.88 10^6/uL (4.1-5.3); Red Cell Distribution Width 12.8 % (12.1-15.1); White Blood Count 5.7 10^3/uL (4.0-10.0)
[2021-07-30 11:28] LABS: D Dimer 0.74 ug/mIFEU (0-0.59)
[2021-07-30 11:34] VITALS: BP 128/72; PULSE 62; RESP 18; O2SAT 97
[2021-07-30 11:34] LABS: Troponin(5th) Baseline 6 ng/L (0-10)
[2021-07-30 11:36] LABS: Alanine Aminotransferase 8 U/L (0-33); Albumin Level 3.8 g/dL (3.5-5.2); Alkaline Phosphatase 66 IU/L (35-105); Aspartate Amino Transferase 11 U/L (0-32); Blood Urea Nitrogen 8 mg/dL (6-20); Calcium 9.1 mg/dL (8.5-10.5); Carbon Dioxide 28 mmol/L (22-29); Chloride 105 mmol/L (98-107); Globulin 3.3 g/dL (1.3-4.6); Glomerular Filtration Rate 107.2 mL/min (90-130); Glucose 85 mg/dL (65-115); Osmolality Calculated 292 mOsm/kg (285-295); Sodium 142 mmol/L (136-145); Total Bilirubin 0.2 mg/dL (0.15-1.2); Total Protein 7.1 g/dL (6.6-8.7)
--- NOTE | 2021-07-30 11:43 | CT_ITS ---
WS: [id number] CT CHEST ANGIOGRAPHY WITH REFORMATS HISTORY: CP, SOB, Elevated D-Dimer TECHNIQUE: Contiguous axial images are obtained through the chest during arterial injection of intrav enous contrast. Images are reconstructed to evaluate the pulmonary arteries. MIP imaging also reviewe d. All CT scans at [facility] use at least one of these dose optimization techniques: automat ed exposure control; mA and/or kV adjustment per patient size (includes targeted exams where dose is matched to clinical indication); or iterative reconstruction. CONTRAST: Omnipaque 350; 95 mL IV. DLP: 528.86 mGy.cm COMPARISON: 07/10/2019 Limited opacification of the pulmonary arteries. There is significant artifact through the pulmonary arteries by body habitus. No filling defects are identified centrally. Beyond the lobar and some of t he segmental branches the opacification is very limited. Pulmonary artery size is normal. There is no RIGHT heart strain. Very slight enlargement of the LEFT ventricle. Normal thoracic aorta. No mediast inal or hilar adenopathy. Benign granuloma at the LEFT apex. No pneumonia. No pleural effusion. Hepatic steatosis and hepatomegaly. No adrenal mass. CT/CT angio chest PE protcl [id number] IMPRESSION: 1. Suboptimal opacification of the pulmonary arteries distal to the segmental branches. Centrally there is no pulmonary embolism. 2. No pneumonia. 3. Normal aorta. 4. Hepatic steatosis.
[2021-07-30 12:10] LABS: Anion Gap 12.9 (5-19); Potassium 3.9 mmol/L (3.5-5.1)
[2021-07-30] MEDS: iohexol 350 mg/mL 100 mL Btl IV (13:02)
[2021-07-30] MEDS: lidocaine 2% viscous 15 ML, aluminum-mag hydrox-simethicon 30 ML, sucralfate oral liq 1 GM PO (13:26)
[2021-07-30 13:55] LABS: Troponin 5 2HR Delta 0 ABS# (0-10)
[2021-07-30 14:22] VITALS: BP 134/72; PULSE 68; RESP 16; O2SAT 98
--- NOTE | 2021-07-30 16:19 | ECG_ITS ---
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 Measurements Intervals [place] Rate: 61 P: 49 SC: 143 QRS: 34 QRSD: 94 T: 30 QT: 369 QTc: 372 Interpretive Statements SINUS RHYTHM Compared to ECG 07/26/2021 11:21:22 Ventricular premature complex(es) no longer present Electronically Signed On 07-31-2021 23:42:04 CDT by Gustavo Granado M.D. [id number]
== END 2021-07-30 14:23 | disposition home or self-care (01) ==
PROVIDERS: Emergency Provider Physician Assistant; PCP Nurse Practitioner Family
DX: R07.89 Other chest pain (principal); I10 Essential (primary) hypertension
CPT/HCPCS: 71045; 71275; 80053; 84484; 85025; 85378; 87040; 93005; 99283; Q9967

== ENCOUNTER → 2021-09-26 09:50 | Outpatient (BNVA) | payer MEDICAID, SELFPAY | PROVIDERS: PCP Nurse Practitioner Family; Visit Provider Nurse Practitioner Family | DX: N92.6 Irregular menstruation, unspecified (principal) | CPT/HCPCS: 81000 ==